=== PATIENT | male | born 1955 | race Caucasian/White ===

== ENCOUNTER 2017-07-11 14:44 | Inpatient (IN) | payer MEDICARE, MEDICAID ==
--- NOTE | ~2017-07-11 | HEMODYNAMI ---
PATIENT:MAMIE ACEVEDO MEDICAL RECORD: [id number] : 57 [id number] ADMISSION DATE: 07/11/17 Generatedon:07/12/201714:22 Patient name: MAMIE ACEVEDO Patient #: [id number] SSN: [id number] : 1955 Date of study: 07/12/2017 Page: Of Hemodynamic Procedure Report Patient Data Patient Demographics Procedure consent was obtained First Name: MAMIE Gender: Male Last Name: KRISTINA : 1955 Patient #: [id number] Age: 61 year(s) Race: SSN: [id number] Additional ID: [id number] Contact details [address]: [address] [place] [address] State: [place] City: [facility] Zip code: [address] Past Medical History Allergies Allergen Reaction Date Comments Reported Other allergy 07/12/2017 penicillin Admission Admission Data Admission Date: 07/11/2017 Admission Time: 16:47 Arrival Date: 07/11/2017 Arrival Time: 16:47 Admit Source: Other Insurance Payor: Medicare, Room #: D.2117 Medicaid Lab Results Lab Result Date: 07/12/2017 Lab Result Time: 0:00 Biochemistry Name Units Result Min Max BUN mg/dl 21 --(----)-* 7 18 Creatinine mg/dl 1.3 --(---*)-- 0.6 1.3 CBC Name Units Result Min Max Hemoglobin g/dl 12.8 -*(----)-- 13.5 17.5 Procedure Procedure Types Cath Procedure Diagnostic Procedure LHC LHC w/Coronaries PCI Procedure Coronary Stent Initial Miscellaneous Procedures Moderate Sedation up to 45 minutes Procedure Description Procedure Date Procedure Date: 07/12/2017 Procedure Start Time: 13:40 Procedure End Time: 14:18 Procedure Staff Name Function Rafael Pemberton MD Performing Physician Juliana Rowe RT Scrub Collette Castro RN Nurse Janice Otero RT Monitor Procedure Data Cath Procedure Fluoroscopy Diagnostic fluoroscopy Total fluoroscopy Time: time: 10.5 min 10.5 min Diagnostic fluoroscopy Total fluoroscopy dose: 537 dose: 537 mGy mGy Contrast Material Contrast Material Type Amount (ml) Isovue 300 89 Entry Location Entry Primary Successful Side Size Upsize Upsize Entry Closure Flores ccessful Closure Location (Fr) 1 (Fr) 2 (Fr) Remarks Device Remarks Radial Right 6 Fr Mechanical artery Short Compression Estimated blood loss: 5 ml Diagnostic catheters Device Type Used For End Catheter Placement Terumo 5Fr Kai 110cm Multi-vessel catheter Angiography Cordis 5Fr Pigtail LV Angiography Catheter (MP) Procedure Complications No complications Procedure Medications Medication Administration Route Dosage Oxygen NC 2 l/min Lidocaine 2% added to field 20 Heparin Flush Bag added to field 2 bags (1000units/500ml NS) 0.9% NaCl I.V. 100 ml/hr Refer to Anesthesia Notes for Sedation Medications Heparin Bolus I.V. 9000 units Radial Cocktail I.A. 1 syringe (Verapomil 2mg/Nitro 400mcg/Heparin 1500units) Plavix P.O. 600 mg Hemodynamics Rest HGB: 12.8 (g/dl) Heart Rate: 88 (bpm) Pressure Samples Time Site Value (mmHg) Purpose Heart Use Rate(bpm) 13:48 LV 116/-7,12 Snapshot 125 Gradients Valve Time Site Site Mean SEP/DFP Peak To Heart Use 1 2 (mmHg) (sec/min) Peak Rate (mmHg) (bpm) Aortic 13:49 LV AO 122 Snapshots Pre Cath Intra NCS Post Cath Vital Signs Time Heart Resp SPO2 NIBP (mmHg) Rhythm Pain Sedation Rate (ipm) (%) Status Level (bpm) 13:29:28 89 17 94 107/74(96) NSR 0 (11) 10(A) , No pain 13:33:27 88 16 94 122/81(101) NSR 0 (11) 10(A) , No pain 13:37:33 90 19 93 111/75(89) NSR 0 (11) 10(A) , No pain 13:41:37 88 16 93 110/71(85) NSR 0 (11) 10(A) , No pain 13:45:45 86 12 94 118/61(105) NSR 0 (11) 10(A) , No pain 13:49:52 121 20 93 104/68(87) NSR 0 (11) 9(A) , No pain 13:53:54 90 20 94 109/71(82) NSR 0 (11) 9(A) , No pain 13:57:58 92 21 94 103/68(85) NSR 0 (11) 9(A) , No pain 14:02:00 92 15 95 115/68(92) NSR 0 (11) 9(A) , No pain 14:06:04 91 22 96 113/78(93) NSR 0 (11) 9(A) , No pain 14:10:05 92 20 95 117/78(95) NSR 0 (11) 10(A) , No pain 14:14:09 91 21 96 126/76(91) NSR 0 (11) 10(A) , No pain 14:18:13 88 14 95 136/89(97) NSR 0 (11) 10(A) , No pain Medications Time Medication Route Dose Verified Delivered Reason Note s Effectiveness by by 13:32:34 Oxygen NC 2 l/min Rafael Buffie used for Oskar Castro RN procedure 13:32:43 Lidocaine 2% added 20ml Rafael Rafael for local to vial Oskar Pemberton MD anesthetic field 13:32:49 Heparin Flush added 2 bags Rafael Rafael used for Bag to Oskar Pemberton MD procedure (1000units/500ml field NS) 13:33:08 0.9% NaCl I.V. 100 Rafael Buffie Per physician ml/hr Oskar Castro RN 13:33:14 Refer to Rafael Buffie Anesthesia Notes Oskar Castro RN for Sedation Medications 13:43:41 Radial Cocktail I.A. 1 Rafael Rafael for (Verapomil syringe Oskar Pemberton MD vasodilation 2mg/Nitro 400mcg/Heparin 1500units) 13:54:46 Heparin Bolus I.V. 9000 Rafael Buffie for veri fied units Oskar Castro RN anticoagulation with dr pemberton 14:14:17 Plavix P.O. 600 mg Rafael Buffie for Oskar Castro RN antiplatelet therapy Procedure Log Time Note 13:00:47 Collette Castro RN sent for patient. Start room use. 13:07:16 Informed consent obtained and on chart 13:11:21 Admit Source: Other 13:11:29 Arrival Date: 07/11/2017 4:47:00 PM 13:11:35 Insurance Payor : Medicare, Medicaid 13:12:33 Diagnostic Cath Status : Elective 13:12:54 Time tracking: Regular hours 13:12:58 Plan of Care:Hemodynamics will remain stable., Cardiac rhythm will remain stable., Comfort level will be maintained., Respiratory function will remain adequate., Patient/ family verbilizes understanding of procedure., Procedure tolerated without complication., Recovers from procedure without complications.. 13:28:20 Patient received from Med II to CCL 3 Alert and oriented. Tansferred to table in Supine position. 13:28:21 Warm blankets applied, and elana hugger turned on for patient comfort. 13:28:22 Correct patient and procedure confirmed by team. 13:28:23 ECG and BP/O2 sat monitors applied to patient. 13:28:23 Vital chart was started 13:28:24 Baseline sample Acquired. 13:28:28 Full Disclosure recording started 13:28:32 H&P Date Dictated: 07/12/2017 New H&P dictated by physician.. 13:28:33 Pre-procedure instructions explained to patient. 13:28:33 Pre-op teaching completed and patient verbalized understanding. 13:28:34 Family in waiting room. 13:28:35 Patient NPO since Midnight. 13:29:15 Patient allergic to Other allergypenicillin 13:29:18 Is the patient allergic to Iodine/contrast media? No. 13:29:19 Was the patient premedicated? No 13:29:23 Is patient on blood thinner?No 13:29:25 Patient diabetic? Yes. 13:29:27 If diabetic: On Metformin? No 13:29:30 Previous problem with sedation/anesthesia? No ? 13:29:32 Snore? Yes 13:29:33 Sleep apnea? No 13:29:34 Deviated septum? No 13:29:35 Opens mouth fully? Yes 13:29:35 Sticks out tongue? Yes 13:29:39 Airway obstruction? Yes copd 13:29:42 Dentures? No ? 13:29:47 Pre procedure: right dorsailis pedis pulse 1+ Palpable, but thready & weak; easily obliterated 13:29:49 Pre procedure: left dorsailis pedis pulse 1+ Palpable, but thready & weak; easily obliterated 13:29:52 Patient pain scale 0/10 ?. 13:29:54 Modified Fritz's test Radial < 7 seconds 13:30:20 IV patent on arrival in left forearm with 0.9% NaCl at [facility]. 13:30:39 Lab Result : BUN 21 mg/dl 13:30:39 Lab Result : Creatinine 1.3 mg/dl 13:30:39 Lab Result : Hemoglobin 12.8 g/dl 13:30:48 Lab results completed and on chart. 13:30:52 Right Radial & Right Groin area was prepped with chlora-prep and draped in sterile fashion 13:30:53 Alarms reviewed by R. N. 13:30:54 Sharps counted by scrub and verified by R.N. 13:32:30 Physician arrived 13:32:30 --------ALL STOP TIME OUT------ 13:32:31 Final Timeout: patient, procedure, and site verified with staff and physician. All members of the team are in agreement. 13:32:34 Oxygen 2 l/min NC was administered by Collette Castro RN; used for procedure; 13:32:35 Right Radial & Right Groin site verified by team. 13:32:39 Physical assessment completed. ASA score P 3 - A patient with severe systemic disease as per Rafael Pemberton MD. 13:32:43 Lidocaine 2% 20ml vial added to field was administered by Rafael Pemberton MD; for local anesthetic; 13:32:46 Sedation plan: TIVA Propofol 13:32:49 Heparin Flush Bag (1000units/500ml NS) 2 bags added to field was administered by Rafael Pemberton MD; used for procedure; 13:32:59 Use device set Radial Dx 13:33:00 Acist Syringe opened to sterile field. 13:33:00 Medline Cath Pack opened to sterile field. 13:33:01 Bag Decanter opened to sterile field. 13:33:01 Terumo 6Fr Slender Glidesheath opened to sterile field. 13:33:01 St Shimon 260cm J .035 wire opened to sterile field. 13:33:02 Acist Hand Control opened to sterile field. 13:33:02 Acist Manifold opened to sterile field. 13:33:02 Tegaderm 4 x 4 opened to sterile field. 13:33:06 MBrace Wrist Support opened to sterile field. 13:33:08 0.9% NaCl 100 ml/hr I.V. was administered by Collette Castro RN; Per physician; 13:33:14 Refer to Anesthesia Notes for Sedation Medications was administered by Collette Castro RN; ; 13:40:10 Procedure started. 13:40:15 Local anesthetic to right radial artery with Lidocaine 2% by Rafael Pemberton MD.INITIAL ACCESS ONLY 13:41:51 A 6 Fr Short sheath was inserted into the Right Radial artery 13:42:14 A [employer] 5Fr Kai 110cm catheter was advanced over the wire and used for Multi-vessel Angiography. 13:43:41 Radial Cocktail (Verapomil 2mg/Nitro 400mcg/Heparin 1500units) 1 syringe I.A. was administered by Rafael Pemberton MD; for vasodilation; 13:45:03 RCA angiography performed. 13:45:14 Injector settings: Ml/sec: 3, Volume: 6, 13:45:30 LCA angiography performed. 13:45:32 Injector settings: Ml/sec: 3, Volume: 6, 13:46:21 Catheter removed. 13:47:17 A Cordis 5Fr Pigtail Catheter (MP) was advanced over the wire and used for LV Angiography. 13:48:58 LV hemodynamics recorded. 13:49:00 LV gram done using KHAN 13:49:03 Injector settings: Ml/sec: 5, Volume: 15, 13:49:14 EF : 50 % 13:49:45 Catheter removed. 13:49:50 Proceeding to intervention. 13:50:07 Medtronic Launcher 6Fr AR 1.0 guide catheter opened to sterile field. 13:50:07 Very [place] Art BasixCompak Inflation Kit opened to sterile field. 13:50:08 South BMW [place] 2 J-tip 300cm 0.014 guide wir opened to sterile field. 13:52:50 High Pressure Extension Tubing (Oskar) opened to sterile field. 13:53:21 6 Fr ar 1 guide catheter was inserted over the wire 13:53:27 bmw wire advanced. 13:54:46 Heparin Bolus 9000 units I.V. was administered by Collette Castro RN; for anticoagulation; verified with dr pemberton 13:56:20 Wire advanced across lesion. 13:58:39 Inflation number: 1 A Mozec Rx 2.5 x 20 balloon was prepped and advanced across the Mid RCA, then inflated to 12 JERROD for 0:10 (min:sec). 13:58:50 Inflation number: 2 The Mozec Rx 2.5 x 20 balloon was reinflated across the Mid RCA, to 13 JERROD for 0:10 (min:sec). 13:59:20 Inflation number: 3 The Mozec Rx 2.5 x 20 balloon was reinflated across the Mid RCA, to 14 JERROD for 0:10 (min:sec). 13:59:49 Inflation number: 4 The Mozec Rx 2.5 x 20 balloon was reinflated across the Mid RCA, to 15 JERROD for 0:10 (min:sec). 14:04:39 Inflation Number: 5 A Juan OTW 2.75 x 26 stent was prepped and advanced across the Mid RCA. The stent was deployed at 15 JERROD for 0:10 (min:sec). 14:08:38 Inflation Number: 1 A Hanahan OTW 3.0 x 26 stent was prepped and advanced across the Prox RCA. The stent was deployed at 16 JERROD for 0:10 (min:sec). 14:09:20 Inflation number: 6 The stent balloon was then re-inflated across the Mid RCA to 10 JERROD for 0:10 (min:sec). 14:10:01 Stent catheter was removed intact over wire. 14:10:15 Wire removed. 14:10:15 Guide catheter removed. 14:10:40 Terumo TR Band Standard opened to sterile field. 14:10:54 Sheath removed intact; hemostasis achieved with Mechanical Compression to the Right Radial artery. 14:10:56 Procedure ended.(Physican Out) 14:11:35 Fluoroscopy time 10.50 minutes. 14:11:46 Flurop Dose total: 537 14:11:46 Fluoroscopy dose: 537 mGy 14:11:56 Contrast amount:Isovue 300 89ml. 14:11:57 Sharps counted by scrub and verified by R.N. 14:11:59 TR band inflated with 10cc of air. 14:12:01 Insertion/operative site no bleeding no hematoma. 14:12:05 Post right radial artery:stable 14:12:07 Post Procedure Pulses reassessed and unchanged 14:12:15 Post procedure rhythm: unchanged. 14:12:26 Estimated blood loss: 5 ml 14:12:31 Post procedure instruction explained to patient.Patient verbalizes understanding. 14:12:33 Patient needs reinforcement of post procedure teaching. 14:14:17 Plavix 600 mg P.O. was administered by Collette Castro RN; for antiplatelet therapy; 14:17:36 Procedure type changed to Cath procedure, Diagnostic procedure, LHC, LHC w/Coronaries, PCI procedure, Coronary Stent Initial, Miscellaneous Procedures, Moderate Sedation up to 45 minutes 14:17:38 Procedure and supply charges have been captured, reviewed, submitted and are correct. 14:17:43 Procedure Complication : No complications 14:17:55 Vital chart was stopped 14:17:55 See physician's report for complete and final results. 14:18:16 Report given to [facility] II. 14:18:20 Patient transfered to Med II with Stretcher. 14:18:25 Procedure ended. 14:18:25 Full Disclosure recording stopped 14:18:33 ACC-PCI Only Patient was given prescriptions, or instructed by Rafael Pemberton MD to start/continue the following medications upon discharge: Plavix 14:18:35 End room use (Document Last) Intervention Summary Intervention Notes Time ActionType Lesion and Equipment Action# Pressure Duration Attributes Used 13:58:39 Inflate Mid RCA Mozec Rx 1 12 00:10 balloon 2.5 x 20 balloon 13:58:50 Reinflate Mid RCA Mozec Rx 2 13 00:10 balloon 2.5 x 20 balloon 13:59:20 Reinflate Mid RCA Mozec Rx 3 14 00:10 balloon 2.5 x 20 balloon 13:59:49 Reinflate Mid RCA Mozec Rx 4 15 00:10 balloon 2.5 x 20 balloon 14:04:39 Place stent Mid RCA Hanahan OTW 5 15 00:10 2.75 x 26 stent 14:08:38 Place stent Prox RCA Hanahan OTW 1 16 00:10 3.0 x 26 stent 14:09:20 Reinflate Mid RCA Juan OTW 6 10 00:10 stent 3.0 x 26 balloon stent Device Usage Item Name Manufacture Quantity Catalog Hospital Part Current Minim al Lot# / Number Charge Number Stock Stock Serial# Code [facility] 1 [id number] [id number] 122698 119751 20 DealerSocket Inc Medline Cardinal 1 [id number] 557259 01156 922773 5 Cath Pack Health Bag Microtek 1 2002S [id number] 18129 690326 5 Photodigm Medical Inc. Terumo 6Fr Terumo 1 [id number] 109015 144599 040465 [address] Sh[address] St Shimon 1 212639 015709 083337 280972 30 260cm J .035 wire Acist Hand Acist 1 17410 498662 466060 737500 5 Control Medical Systems Inc Acist Acist 1 32168 393511 659393 343517 5 Manifold Medical Systems Inc Tegaderm 4 3M 1 1626W 288131 261658 134681 5 x 4 MBrace Advanced 1 140-0250-00 567139 66115 217254 5 Wrist Vascular Support Dynamics Terumo 5Fr Terumo 1 40-9210 050533 803615 958826 5 Kai 110cm catheter Cordis 5Fr Cardinal 1 146416 5 Pigtail Health Catheter (MP) Medtronic Medtronic 1 [id number] 347670 79953 002627 1 Launcher 6Fr AR 1.0 guide catheter Merit Merit 1 [id number] 944024 152623 893506 15 BasixCompak Medical Inflation Kit South [employer] [place] 1 [id number] 296487 022806 913029 5 [place] 2 Vascular J-tip 300cm 0.014 guide wir High Merit 1 [id number] 780469 53305 113575 10 Pressure Medical Extension Tubing (Pemberton) Mozec Rx Cardinal 1 [id number] 077226 68154 626448 5 [id number] 2.5 x 20 Health balloon Juan OTW Medtronic 1 [id number] 230305 1009466 603659 5 [id number] 2.75 x 26 stent Juan OTW Medtronic 1 [id number] 648057 6657025 897432 5 [id number] 3.0 x 26 stent Terumo TR Terumo 1 [id number] 502318 975919 729818 40 Band Standard Signature Audit [place] Stage Time Signature Unsigned Intra-Procedure 07/12/2017 Janice Otero 2:22:21 PM RT(R) Signatures Monitor : Janice Otero RT Signature : Date : Time : [place] [address] [place] [address]
[2017-07-11 15:21] LABS: BASOPHILS 0.1 % (0-2); EOSINOPHILS 0.8 % (0-7); HEMATOCRIT 39.9 % (42.0-54.0); HEMOGLOBIN 13.4 g/dL (13.5-17.5); IMMATURE GRANULOCYTES 0.5 % (0-5); LYMPHOCYTES 18.5 % (15-50); MCH 32.3 pg (26.0-34.0); MCHC 33.6 g/dL (31.0-37.0); MCV 96.1 fL (80.0-100.0); MEAN PLATELET VOLUME 9.8 fL (7.4-10.4); MONOCYTES 8.2 % (2-11); NEUTROPHILS 71.9 % (40-80); PLATELET COUNT 210 10x3/uL (130-400); RBC 4.15 10x6/uL (4.20-6.10); RDW 14.7 % (11.5-14.5); WBC 15.4 10x3/uL (4.8-10.8)
[2017-07-11 16:03] LABS: ALBUMIN 3.1 g/dL (3.4-5.0); ALKALINE PHOSPHATASE 90 U/L (46-116); ALT (SGPT) 43 U/L (10-68); CALC OSMOLALITY 293 mosm/kg (275-300); CALCIUM 8.5 mg/dL (8.5-10.1); CARBON DIOXIDE 26.1 mmol/L (21.0-32.0); CHLORIDE - SERUM 103 mmol/L (98-107); POTASSIUM - SERUM 4.3 mmol/L (3.5-5.1); PROTEIN - SERUM 6.9 g/dL (6.4-8.2); SODIUM 137 mmol/L (136-145); UREA NITROGEN 26 mg/dL (7-18); eGFR NON AFRICAN AMERICAN 36 mL/min (90-120)
[2017-07-11 16:09] LABS: GLUCOSE 360 mg/dL (74-106)
[2017-07-11 16:56] LABS: APPEARANCE CLEAR (CLEAR); COLOR AMBER (YELLOW); LEUKOCYTE ESTERASE NEGATIVE (NEGATIVE); NITRITE NEGATIVE (NEGATIVE); SPECIFIC GRAVITY 1.015 (1.005-1.020)
[2017-07-11 16:57] LABS: BILIRUBIN NEGATIVE (NEGATIVE); GLUCOSE 1000 mg/dL (NEGATIVE); KETONE NEGATIVE (NEGATIVE); PROTEIN NEGATIVE (NEGATIVE); UROBILINOGEN NORMAL (NORMAL)
[2017-07-11 17:06] LABS: CKMB 9.5 U/L (0.0-3.6)
[2017-07-11 17:11] LABS: CHOLESTEROL, TOTAL 130 mg/dL (0-200); CREATINE KINASE 648 UL (21-232); TRIGLYCERIDE 140 mg/dL (30-200); TROPONIN-I 0.618 ng/mL (0.000-0.060)
[2017-07-11 17:12] LABS: CHOL - HDL RATIO 3.3 ratio (2.3-4.9); HDL CHOLESTEROL 39 mg/dL (32-96); LDL CHOLESTEROL 63 mg/dL (0-100); LDL-HDL RATIO 1.6 ratio (1.5-3.5)
[2017-07-11 17:58] LABS: BASOPHILS 0.2 % (0-2); EOSINOPHILS 1.1 % (0-7); HEMOGLOBIN 13.3 g/dL (13.5-17.5); IMMATURE GRANULOCYTES 0.4 % (0-5); LYMPHOCYTES 19.9 % (15-50); MCHC 33.3 g/dL (31.0-37.0); MCV 96.4 fL (80.0-100.0); MEAN PLATELET VOLUME 9.7 fL (7.4-10.4); MONOCYTES 9.7 % (2-11); NEUTROPHILS 68.7 % (40-80); PLATELET COUNT 199 10x3/uL (130-400); RBC 4.15 10x6/uL (4.20-6.10); RDW 14.8 % (11.5-14.5); WBC 14.5 10x3/uL (4.8-10.8)
--- NOTE | 2017-07-11 18:41 | NUR ---
ARRIVE TO ROOM VIA WHEELCHAIR FROM ER. ALERT AND ORIENTED X4. AMBULATES TO BED FROM WHEELCHAIR WITH STAND BY ASSIST. IV LT AC SL. RECIEVED LOVENOX INJ, NITRO, AND 325mg ASA IN ER. GLUCOSE 360 TREATED IN ER. PASS ON ADMISSION PROCESS TO OFE MCKEON CLINICAL TECHNICIAN. BED LOCKED AND LOW. CALL LIGHT IN REACH. TWO SIDERAILS UP.
[2017-07-11 18:46] LABS: CKMB 8.5 U/L (0.0-3.6); CREATINE KINASE 650 UL (21-232)
[2017-07-11 18:50] LABS: TROPONIN-I 0.628 ng/mL (0.000-0.060)
[2017-07-11 19:00] VITALS: BP 120/69
[2017-07-11 19:12] LABS: HEMOGLOBIN A1C 7.7 % (4.8-6.0)
[2017-07-12] VITALS: BP 107/74
[2017-07-12 01:10] LABS: CKMB 6.3 U/L (0.0-3.6); CREATINE KINASE 566 UL (21-232)
[2017-07-12 01:14] LABS: TROPONIN-I 0.578 ng/mL (0.000-0.060)
--- NOTE | 2017-07-12 02:53 | NUR ---
CALL LIGHT IN REACH, WILL CONTINUE WITH PLAN OF CARE.
[2017-07-12 04:00] VITALS: BP 141/67
[2017-07-12] MEDS ORDERED: VITAMIN B-1100 M1 PO (06:39)
[2017-07-12] MEDS ORDERED: ZYPREXA7.5 MG PO (06:39)
[2017-07-12] MEDS ORDERED: VOLTAREN75 MG PO (06:40)
[2017-07-12 06:41] LABS: BASOPHILS 0.3 % (0-2); EOSINOPHILS 1.5 % (0-7); HEMATOCRIT 38.8 % (42.0-54.0); HEMOGLOBIN 12.8 g/dL (13.5-17.5); IMMATURE GRANULOCYTES 0.6 % (0-5); LYMPHOCYTES 21.7 % (15-50); MCH 31.5 pg (26.0-34.0); MCV 95.6 fL (80.0-100.0); MEAN PLATELET VOLUME 9.5 fL (7.4-10.4); MONOCYTES 11.4 % (2-11); NEUTROPHILS 64.5 % (40-80); PLATELET COUNT 198 10x3/uL (130-400); RBC 4.06 10x6/uL (4.20-6.10); RDW 14.6 % (11.5-14.5); WBC 11.7 10x3/uL (4.8-10.8)
[2017-07-12] MEDS ORDERED: VITAMIN B-1000 MCG/M IM (06:42)
[2017-07-12] MEDS ORDERED: NEURONTIN600 MG PO (06:42)
[2017-07-12] MEDS ORDERED: FAMOTIDINE10 MG PO (06:43)
[2017-07-12] MEDS ORDERED: ACETAMINOPHEN325 MG PO (06:44)
[2017-07-12] MEDS ORDERED: MILK OF MAGNESI30 ML PO (06:45)
[2017-07-12] MEDS ORDERED: DULCOLAX10 MG/SUPP RC (06:45)
[2017-07-12] MEDS ORDERED: ZANAFLEX2 M1 PO (06:46)
[2017-07-12] MEDS ORDERED: PLAVIX75 MG PO (06:46)
[2017-07-12] MEDS ORDERED: VITAMIN D31000 UNIT PO (06:46)
[2017-07-12] MEDS ORDERED: REMERON15 MG PO (06:47)
[2017-07-12] MEDS ORDERED: ADVAIR 250/501 DISK INH (06:47)
[2017-07-12 07:18] LABS: CALC OSMOLALITY 284 mosm/kg (275-300); CALCIUM 8.9 mg/dL (8.5-10.1); CARBON DIOXIDE 26.8 mmol/L (21.0-32.0); CHLORIDE - SERUM 107 mmol/L (98-107); CREATINE KINASE 507 UL (21-232); CREATININE - SERUM 1.3 mg/dL (0.6-1.3); GLUCOSE 117 mg/dL (74-106); POTASSIUM - SERUM 4.2 mmol/L (3.5-5.1); SODIUM 141 mmol/L (136-145); TROPONIN-I 0.611 ng/mL (0.000-0.060); UREA NITROGEN 21 mg/dL (7-18); eGFR NON AFRICAN AMERICAN 60 mL/min (90-120)
[2017-07-12 08:00] VITALS: BP 106/62
--- NOTE | 2017-07-12 08:00 | NUR ---
ALERT AND ORIENTED TO PERSON AND SITUATION. DR. YOUNG EXPLAINING PROCEDURE. CALL [facility] FOR SON JOHN ACEVEDO'S PHONE NUMBER. PHONE NUMBER DISCONNECTED. NOTIFY . CONTINUE PLAN OF CARE. BED LOCKED AND LOW. CALL LIGHT IN REACH. TWO SIDERAILS UP. SINUS RHTHYM ON TELEMETRY.
[2017-07-12 10:07] VITALS: Wt 95.9 kg
[2017-07-12 12:00] VITALS: BP 117/49
--- NOTE | 2017-07-12 12:32 | NUR ---
ALERT AND ORIENTED X4. ABLE TO EXPLAIN PROCEDURE. WILLING TO SIGN CONSENTS FOR ANGIOGRAM. CONSENTS SIGNED ON CHART. CONTINUE PLAN OF CARE AND SAFETY PRECAUTIONS.
[2017-07-12] MEDS ORDERED: ASPIRIN81 MG PO (15:38)
[2017-07-12 16:00] VITALS: BP 147/79
[2017-07-12 19:00] VITALS: BP 89/45
--- NOTE | 2017-07-12 19:30 | NUR ---
RECEIVED PT IN BED EYES CLOSED RESP UNLABORED RESP UNLABORED NAD NOTED
--- NOTE | 2017-07-12 21:36 | NUR ---
FSBS 162 REFUSED COVERAGE
[2017-07-13 04:00] VITALS: BP 119/64
[2017-07-13 04:53] LABS: BASOPHILS 0.3 % (0-2); EOSINOPHILS 1.6 % (0-7); HEMATOCRIT 38.2 % (42.0-54.0); HEMOGLOBIN 12.8 g/dL (13.5-17.5); LYMPHOCYTES 37.7 % (15-50); MCH 31.8 pg (26.0-34.0); MCHC 33.5 g/dL (31.0-37.0); MCV 94.8 fL (80.0-100.0); MONOCYTES 11.1 % (2-11); NEUTROPHILS 48.3 % (40-80); PLATELET COUNT 236 10x3/uL (130-400); RBC 4.03 10x6/uL (4.20-6.10); RDW 14.7 % (11.5-14.5)
[2017-07-13 05:00] LABS: WBC 7.6 10x3/uL (4.8-10.8)
[2017-07-13 05:04] LABS: ANION GAP 13.9 mmol/L (8-16); CALCIUM 8.9 mg/dL (8.5-10.1); CARBON DIOXIDE 24.1 mmol/L (21.0-32.0); CREATININE - SERUM 1.3 mg/dL (0.6-1.3)
--- NOTE | 2017-07-13 05:38 | NUR ---
GLUCOSE 119
[2017-07-13] MEDS ORDERED: LOPRESSOR25 MG PO (09:36)
[2017-07-13] MEDS ORDERED: LEVAQUIN500 MG PO (10:45)
--- NOTE | 2017-07-13 11:05 | NUR ---
Patient Name: MAMIE ACEVEDO Admission Status: ER Accout number: [id number] Admission Date: 07-11-2017 : 1955 Admission Diagnosis: Attending: RAJNI LIM Current LOS: 2 Anticipated DC Date: 07-13-2017 Planned Disposition: Nursing Facility [facility] Primary Insurance: MEDICARE A & B PLANNED EXTERNAL PROVIDER: [facility] MEDICAID BED Discharge Planning Comments: * Is the patient Alert and Oriented? Yes 0 * How many steps to enter\exit or inside your home? NONE 0 * PCP [facility] 0 * Pharmacy [facility] 0 * Preadmission Environment [facility] 0 * Facility Name [facility] 0 * ADLs Partial Dependent 0 * Partial ADLs (Assistance needed) Bathing Medication Management Transfers 0 * Equipment Wheelchair 0 * Other Equipment ALL MEDICAL EQUIPMENT 0 * List name and contact numbers for known caregivers / representatives who currently or will assist patient after discharge: JOHN ACEVEDO, SON, NO KNOWN NUMBER 0 * Community resources currently utilized None 0 * Please name any agencies selected above. NONE 0 * Additional services required to return to the preadmission environment? No 0 * Can the patient safely return to the preadmission environment? Yes 0 * Has this patient been hospitalized within the prior 30 days at any hospital? No 0 CM RECEIVED DISCHARGE ORDER, MET WITH PT IN ROOM TO DISCUSS DISCHARGE PLANNING AND NEEDS. PT REPORTS LIVING AT [facility] FOR PAST 5 MONTHS. PT HAS NO CONTACT INFORMATION FOR HIS SON AND HAS NOT HEARD FROM HIM. PT PLANS TO RETURN TO [facility] TODAY, ASKED FOR THEM TO BRING HIS WHEELCHAIR IN THE VAN. CM CALLED [facility], , SPOKE TO SUSAN WHO VERFIED PT IN COIL MACHINE SUPERVISOR CARE, TO ACCEPT BACK TODAY, VAN CANNED FOOD RECONDITIONING INSPECTOR AT 1285, NO FAMILY CONTACT INFORMATION CAN BE LOCATED. CM FAXED DISCHARGE INFORMATION TO [facility] AT [phone]. PATIENT NOTIFIED. NURSE REPORT TO BE CALLED NURSE MUNOZ AT [facility] AT [phone]. [facility] VAN TO PICK PT UP AT ABOUT 1145 TODAY. Compressed Gas Equipment Mechanic: Jarrod Lee
--- NOTE | 2017-07-13 12:17 | NUR ---
ALERT AND ORIENTED X4. [place] AND [place]. REPORT GIVEN TO NURSE AT [facility]. TRANSPORTERS ARRIVE FOR TRANSPORT. DISCHARGE PAPERS SIGNED ON CHART. ESCORT TO VAN VIA WHEELCHAIR. REMAINS FREE FROM INJURY.
== END 2017-07-13 12:19 | DRG 247 ==
LOC: D.ER 14:44 → D.M2 16:47
PROVIDERS: Emergency Medicine; Internal Medicine Cardiovascular Disease; ADMIT Family Medicine Adult Medicine
PROC: B2111ZZ Fluoroscopy of Multiple Coronary Arteries using Low Osmolar Contrast (ICD-10-PCS; 2017-07-12)
PROC: B2151ZZ Fluoroscopy of Left Heart using Low Osmolar Contrast (ICD-10-PCS; 2017-07-12)
PROC: 027035Z Dilation of Coronary Artery, One Artery with Two Drug-eluting Intraluminal Devices, Percutaneous Approach (ICD-10-PCS; principal; 2017-07-12 13:45)
PROC: 4A023N7 Measurement of Cardiac Sampling and Pressure, Left Heart, Percutaneous Approach (ICD-10-PCS; 2017-07-12 13:45)
DX: I21.4 Non-ST elevation (NSTEMI) myocardial infarction (principal); T82.855A Stenosis of coronary artery stent, initial encounter; F17.203 Nicotine dependence unspecified, with withdrawal; Y83.8 Other surgical procedures as the cause of abnormal reaction of the patient, or of later complication, without mention of misadventure at the time of the procedure; I25.10 Atherosclerotic heart disease of native coronary artery without angina pectoris; F20.9 Schizophrenia, unspecified; I10 Essential (primary) hypertension; J44.9 Chronic obstructive pulmonary disease, unspecified; E11.65 Type 2 diabetes mellitus with hyperglycemia; N28.9 Disorder of kidney and ureter, unspecified